=== PATIENT | female | born 1970 | race Caucasian/White ===

== ENCOUNTER 2018-05-19 12:55 | Outpatient (CLI) | payer BC ==
--- NOTE | 2018-05-19 14:11 | RAD ---
THREE VIEWS LUMBAR SPINE WITH FLEXION AND EXTENSION VIEWS: Date: 05-19-18 History: Lumbar radiculopathy. Patient complains of low back pain with pain radiating down into right leg. Comparison: None available. FINDINGS: AP projection was not provided, but there do appear to be five non-rib bearing lumbar type vertebral bodies. Vertebral body heights are within normal limits. There is loss of intervertebral disc height involving the lower lumbar spine, greatest at the L4-5 level where there is associated vacuum phenome non and mild endplate degenerative changes. There is retrolisthesis of L4 on L5 measuring approximate ly 5 mm on both flexion and extension views. There is trace grade I anterolisthesis of L3 on L4 noted on flexion which corrects on extension. No additional level of subluxation is seen. The vertebral luba dy heights are within normal limits. No fracture is present on provided lateral images. A few scatter ed Schmorl's nodes are seen. IMPRESSION: 1. Degenerative changes throughout the lumbar spine, greatest at the L4-5 level where there is mild r etrolisthesis of L4 on L5. 2. Trace anterolisthesis of the L3 on L4 on flexion, which does correct with extension. POS: [facility]
== END 2018-05-19 12:56 | disposition home or self-care (01) ==
LOC: TBSIIMAG 12:55
PROVIDERS: ATTEND Neurological Surgery
DX: M54.16 Radiculopathy, lumbar region (principal); M47.26 Other spondylosis with radiculopathy, lumbar region
CPT/HCPCS: 72100

== ENCOUNTER 2019-03-08 05:45 | Day surgery (SDC) | payer BC ==
[2019-03-07 11:57] VITALS: BMI 28.1
[2019-03-08] MEDS ORDERED: Thrombin 5000 UNITS/5 ML VIAL ONE (06:11)
[2019-03-08] MEDS ORDERED: Fentanyl 100 MCG/2 ML VIAL ONE ×4 (06:49→09:16)
[2019-03-08] MEDS ORDERED: Midazolam HCl 2 mg/2 ml Vial ONE (06:51)
--- NOTE | 2019-03-08 07:08 | HP ---
HISTORY OF PRESENT ILLNESS: Ms. Alexis is a pleasant 48-year-old woman and friend of one of our patients, who presents here for evaluation of both bilateral upper extremity C5 and C6 complaints. She has had these issues for many years, but states that over the last 6 months, they have all worsened. She has MRI on a disc from of both her cervical and lumbar spines which reveal reversal of her cervical lordosis from C4-C6 with bilateral neuroforaminal narrowing at both levels that would fit well. She has treated this with injections, therapy, and medications, but unfortunately has persistent pain. PAST MEDICAL HISTORY: Significant for anxiety, migraine headache. PAST SURGICAL HISTORY: sections x2, herniorrhaphy, bowel resection. MEDICATIONS: Current medications; 1. Adderall. 2. Butalbital. 3. Acetaminophen. 4. Caffeine. ALLERGIES: NO KNOWN DRUG ALLERGIES. PHYSICAL EXAMINATION: GENERAL: The patient is alert and oriented x3. Gait is antalgic and slowed. Lower extremity exam is normal. Upper extremity exam is normal. Restricted cervical range of motion. PLAN: Dr. Mcfarland met with the patient, reviewed imaging, and advocated for C4-C6 ACDF. He explained to the patient the risks, benefits, and alternatives of the procedure. The patient expressed understanding and elected to move forward with surgery as discussed. I do believe the patient is mentally competent and capable of making medical decisions for herself. We will move forward with surgery as planned. Job ID: [id number]
[2019-03-08] MEDS ORDERED: Morphine 4 MG/ML VIAL ONE (09:01)
[2019-03-08] MEDS ORDERED: Ondansetron PF 4 MG/2 ML Vial ONE (09:36)
[2019-03-08] MEDS ORDERED: Lidocaine 1% PF 5 ML VIAL ONE (09:36)
[2019-03-08] MEDS ORDERED: Dexamethasone 20 MG/5 ML VIAL ONE (09:36)
[2019-03-08] MEDS ORDERED: PROPOFOL 200 MG/20 ML VIAL ONE (09:36)
[2019-03-08] MEDS ORDERED: Glycopyrrolate 0.2 MG/ML 5 ML SYRINGE ONE (09:36)
[2019-03-08] MEDS ORDERED: Rocuronium Bromide 10 MG/ML (10ML VIAL) ONE (09:36)
[2019-03-08] MEDS ORDERED: Promethazine HCl 25 MG/ML VIAL ONE (10:12)
[2019-03-08] MEDS ORDERED: Acetaminophen/Codeine 30-300mg Tablet ONE (11:03)
[2019-03-08] MEDS ORDERED: Cyclobenzaprine 10 MG TAB ONE (11:04)
--- NOTE | 2019-03-08 14:49 | OP ---
DATE OF PROCEDURE: 03/08/2019 CUSTOM SHOE DESIGNER AND MAKER: Arthur Nevarez PA-C INDICATION: Pain. DIAGNOSIS: Cervical radiculopathy. PROCEDURE PERFORMED: Anterior cervical diskectomy and fusion, C4 to C6. ANESTHESIA: General. DESCRIPTION OF PROCEDURE: The patient was brought into the operating room and placed under general anesthesia. She was placed on table in supine position. A transverse incision was planned over the lateral aspect of the neck on the right. After prepping and draping and after an appropriate operative pause, the incision was created. The underlying platysma muscle was identified and incised. A blunt tissue plane anterior to the sternocleidomastoid muscle was used to gain access to the prevertebral space. After placing self-retaining retractors, a C-arm images obtained to confirm the appropriate level. An annulotomy was performed in the C5-C6 disk space. Under distraction with distraction pins, the disk and osteophytes were removed in order to decompress the exiting nerve roots. A 6-mm lordotic PEEK cage packed with allograft and autograft material was placed within the interbody space. We then redirected our attention level above at C4-C5, where again an annulotomy was performed. With the aid of distraction pins, disk material as well as anterior and posterior osteophytes were removed. After decompressing that segment, a 6-mm lordotic PEEK cage packed with allograft and autograft material was placed. An anterior cervical plate was then fashioned to the front of spine and secured with a total of 6 screws. Midline and lateral structures were inspected and found to be free from significant trauma. The wound was irrigated. Hemostasis was maintained throughout. The wound was then closed in anatomic layers and a pressure dressing was applied. There were no known procedural complications. Job ID: [id number]
== END 2019-03-08 11:20 | disposition home or self-care (01) ==
LOC: SDC 05:45
PROVIDERS: ATTEND Neurological Surgery
DX: M54.12 Radiculopathy, cervical region (principal); M43.8X2 Other specified deforming dorsopathies, cervical region; M48.02 Spinal stenosis, cervical region; K21.9 Gastro-esophageal reflux disease without esophagitis; F41.9 Anxiety disorder, unspecified; G43.909 Migraine, unspecified, not intractable, without status migrainosus; Z87.891 Personal history of nicotine dependence; Z79.899 Other long term (current) drug therapy; Z91.048 Other nonmedicinal substance allergy status; Z90.49 Acquired absence of other specified parts of digestive tract
CPT/HCPCS: 76000; C1713; C1776; J0690; J1100; J2001; J2250; J2270; J2405; J2550; J2704; J3010

== ENCOUNTER 2019-09-29 06:45 | Outpatient (CLI) | payer BC, OTHER ==
[2019-09-29 18:03] LABS: #Basophils 0.1 thou/uL (0.0-0.2); #Eosinphils 0.4 thou/uL (0.0-0.7); #Lymphocytes 2.4 thou/uL (1.20-3.40); #Monocytes 0.9 thou/uL (0.11-0.59); #Neutrophils 4.7 thou/uL (1.40-6.50); %Basophils 1.3 % (0.0-1.0); %Eosinophils 4.7 % (0.0-10.0); %Lymphocytes 28.6 % (21.0-51.0); %Monocytes 10.1 % (0.0-10.0); %Neutrophils 55.3 % (42.0-75.0); Hemoglobin 13.7 g/dL (12.0-16.0); Mean Corpuscular HGB CONC 32.8 g/dL (32.0-36.0); Mean Corpuscular Hemoglobin 30.5 pg (27.0-31.0); Mean Corpuscular Volume 93.1 fL (78.0-98.0); Mean Platelet Volume 8.2 fL (7.4-10.4); Platelet Count 278 thou/uL (130-400); RBC Distribution Width 12.1 % (11.5-14.5); Red Blood Cell (RBC) Count 4.49 mill/uL (4.20-5.40); White Blood Cell (WBC) Count 8.5 thou/uL (4.8-10.8)
[2019-09-29 18:30] LABS: Anion Gap 11 mmol/L (10-20); BUN (Urea Nitrogen) 16 mg/dL (7.0-18.7); Calc. Creatinine Clearance 0 mL/min (70-130); Calcium 9.3 mg/dL (7.8-10.44); Carbon Dioxide 28 mmol/L (22-29); Chloride 106 mmol/L (98-107); Estimated GFR-MDRD 86; Glucose 87 mg/dL (70-105); Potassium 3.9 mmol/L (3.5-5.1); Sodium 141 mmol/L (136-145)
[2019-09-30 12:15] LABS: SARS-CoV-2 MS2 Positive; SARS-CoV-2 N Gene Negative; SARS-CoV-2 S Gene Negative; SARS-CoV-2 orf1ab Negative
== END 2019-09-29 06:46 | disposition home or self-care (01) ==
LOC: LABBT 06:45
PROVIDERS: ATTEND Orthopaedic Surgery
DX: Z01.812 Encounter for preprocedural laboratory examination (principal); Z11.59 Encounter for screening for other viral diseases; G56.03 Carpal tunnel syndrome, bilateral upper limbs
CPT/HCPCS: 80048; 85025; 87635; 93005; 93010; U0003

== ENCOUNTER 2019-10-04 07:22 | Day surgery (SDC) | payer BC ==
[2019-09-28 10:45] VITALS: BMI 27.3
[2019-10-04] MEDS ORDERED: Lidocaine 1% (PF) 30 ML VIAL ONE (08:07)
[2019-10-04] MEDS ORDERED: Fentanyl 100 MCG/2 ML VIAL ONE ×2 (08:29→11:10)
[2019-10-04] MEDS ORDERED: Ketorolac Tromethamine 30 MG/ML VIAL ONE (11:26)
[2019-10-04] MEDS ORDERED: Dexamethasone 20 MG/5 ML VIAL ONE (11:26)
[2019-10-04] MEDS ORDERED: PROPOFOL 200 MG/20 ML VIAL ONE (11:26)
[2019-10-04] MEDS ORDERED: Lidocaine 1% PF 5 ML VIAL ONE (11:26)
[2019-10-04] MEDS ORDERED: PHENYLEPHRINE-NS 100 MCG/ML 10 ML SYRINGE ONE (11:26)
[2019-10-04] MEDS ORDERED: Glycopyrrolate 0.2 MG/ML 5 ML SYRINGE ONE (11:26)
[2019-10-04] MEDS ORDERED: Ondansetron PF 4 MG/2 ML Vial ONE (11:26)
[2019-10-04] MEDS ORDERED: EPHEDRINE 25 MG/5 ML SYRINGE ONE (11:26)
--- NOTE | 2019-10-04 19:08 | OP ---
DATE OF PROCEDURE: 10/04/2019 PREOPERATIVE DIAGNOSIS: Bilateral carpal tunnel syndrome. POSTOPERATIVE DIAGNOSIS: Bilateral carpal tunnel syndrome. PROCEDURES PERFORMED: 1. Right open carpal tunnel release. 2. Placement of short-arm volar splint, right upper extremity. 3. Left open carpal tunnel release. 4. Placement of short-arm volar splint, left upper extremity. BACK TENDER CYLINDER: None. ESTIMATED BLOOD LOSS: Minimal. COMPLICATIONS: None. ANESTHESIA: She did have a general anesthetic. DISPOSITION: She went to recovery room in stable condition. INDICATIONS: This 48-year-old female was found to have [id number] carpal tunnel syndrome bilateral, at this time wished to have both hands released at the same time. DESCRIPTION OF PROCEDURE: After all appropriate consent forms were explained and signed, she was taken back to the operating room, at this time was given a general anesthetic. Once the level of anesthesia was appropriate, a tourniquet was placed on the right upper extremity. The right upper extremity and the left upper extremity were both prepped and draped at the same time. We turned our attention first to the right upper extremity. Incision line was drawn out, and lidocaine without epinephrine was used to infiltrate along the incision line. The limb was then exsanguinated, and the tourniquet was taken to 250 mmHg. Using loupe magnification, a 15 blade was used to make our skin incision. Bipolar cautery was used to coagulate any brisk venous bleeding. A small hemostat was placed underneath the transverse carpal ligament to protect the underlying median nerve and at this time, a 15 blade and scissors were used to transect the transverse carpal ligament. At this time, a moist Ray-Yi sponge was applied into the wound. Tourniquet was let down. Bipolar cautery was used to coagulate any brisk venous bleeding. We then thoroughly irrigated and dried. We then used multiple nylon sutures to close the skin incision followed by placing a sterile hand dressing onto the right upper extremity with no splint material at this time. We then turned our attention to the left side and performed another standard carpal tunnel release. Once this had been done, we then went ahead and applied a small volar splint to the left upper extremity followed by placing one to the right upper extremity. This ended the procedure. The patient was awakened. She was taken to recovery room in stable condition. All counts were correct at the end of the case. She did receive preoperative IV antibiotics. Job ID: [id number]
== END 2019-10-04 12:20 | disposition home or self-care (01) ==
LOC: SDC 07:22
PROVIDERS: ATTEND Orthopaedic Surgery
PROC: 01N50ZZ Release Median Nerve, Open Approach (ICD-10-PCS; principal; 2019-10-04)
DX: G56.03 Carpal tunnel syndrome, bilateral upper limbs (principal); Z79.899 Other long term (current) drug therapy; Z91.048 Other nonmedicinal substance allergy status
CPT/HCPCS: J0690; J1100; J1885; J2001; J2405; J2704; J3010